=== PATIENT | female | born 1975 | race Caucasian/White ===

== ENCOUNTER 2017-05-19 10:04 | Emergency (ER) | payer MEDICAID ==
[~2017-05-19] VITALS: Ht 160 cm; Wt 45.4 kg
[~2017-05-19 10:04] MED LIST: ALBUTEROL2 PUFFS/17 IN; AMOXIL500 MG PO; BACTRIM DS 8001 TA1 PO; BENADRYL25 M1 PO; CIPRO 500MG TA500 MG PO; DIFLUCAN150 MG PO; FLAGYL500 M1 PO; KEFLEX 500MG.500 MG PO; MEDROL 4MG. DOSE4 MG PO; NAPROXEN SODIU500 MG PO; NOMEDS *; NORCO 325 MG-51 TAB PO; PREDNISONE 20MG20 MG PO; PROVERA 10MG TA10 MG PO; SEPTRA DS 800 M1 TAB PO; TESSALON PERLE100 MG PO; TESSALON PERLE200 MG PO; TUSSIONEX PENN480 ML PO; ZITHROMAX Z PA250 MG PO; ZITHROMAX500 MG PO
[2017-05-19] MEDS ORDERED: BIAXIN 500MG T500 MG PO (10:23)
[2017-05-19] MEDS ORDERED: PROVENTIL0.09 MG/A1 IH (10:23)
[2017-05-19] MEDS ORDERED: MEDROL 4MG. DOSE4 MG PO (10:23)
[2017-05-19] MEDS ORDERED: TESSALON PERLE100 M1 PO (10:23)
--- NOTE | 2017-05-19 10:24 | [facility] Report ---
History of Present Issue Date/Time Seen by Provider 05/19/17 1016 Visit Reason Pt arrived:Walked Presenting Problem:PT STATES BODY ACHES, FEVER, CHEST CONGESTION AND PRODUCTIVE COUGH X1 WEEK Location if Accident: Onset of symptoms date/time:/ or onset unknown for:MEDICAL HX UNKNOWN Have you (or family members/close friends) recently traveled outside the [place]? N If Yes, where/when: Have you had exposure to infectious disease within the past month? TB? Other? Specify: Source patient, RN notes reviewed Exam Limitations no limitations Comment Cough, congestion, body aches X 1 week. Has had fever and chills. She is weak and short of breath. Denies ear pain. Does have sore throat. Cough is productive of yellow sputum. No hemoptysis. No N/V/D. She does smoke. ALLERGIES Coded Allergies: codeine (Intermediate, I-HIVES 08/16/15) Home Medications Reported Medications No Known Home Medications History Medical History General CAD? No Angina: No MA: No Hypertension? No Hyperlipidemia? No CHF? No DVT? No PE? No COPD? No Asthma? No Anemia? No GERD? No Gastric ulcers? Yes GI Bleed? No Hernia? No Thyroid Problems? No Hypothyroidism? No CVA? No Seizures? No Diabetes? No Renal Insuffiency? No UTI? No Stones? No BPH? No GB Disease: No Nephritic Syndrome? No Asplenia? No Hepatitis? No Sickle Cell Disease? No Arthritis? No Migraines? No Cataracts? No Glaucoma? No MRSA? No HIV? No TB? No Anxiety? No Depression? No Cancer? Yes Site: CERVICAL More? 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 Social History Smoking Hx Smoker: Current Every Day Smoker Tobacco: Yes Type Cigarettes Packs/day < 1 Pack Alcohol Alcohol: No Review of Systems All Other Systems Reviewed and Negative Constitutional chills, fever, malaise, weakness Respiratory cough, wheezing Physical Exam Vital Signs Vital Signs Date Time Temp Pulse Resp B/P Pulse O2 O2 Flow FiO2 Ox Delivery Rate 05/19 1013 98.2 74 20 141/98 97 General Appearance normal appearance, no apparent distress Ear, Nose, Throat hearing grossly normal, normal ENT inspection Respiratory Status No: respiratory distress, trachea midline, chest symmetrical. Lung Sounds bilateral: rhonchi, wheezing. Cardiovascular normal exam, regular rate/rhythm, no peripheral edema, no gallop, no JVD, no murmur, no rub Extremities non-tender, normal range of motion, normal inspection, normal capillary refill Neurologic alert, normal exam, oriented x 3 Mental status normal mood/affect Medical Decision Making LABS/Meds/Orders Pt receiving controlled substance in ED? No Departure Departure Disposition DC Home or Self Care(routine) Clinical Impression Primary Impression: Bronchitis Condition STABLE Referrals Tomy ANDERSON,Nimesh Womack (Family) Patient Instructions DI for Acute Bronchitis Discharge Counseling Counseled pt/family regarding diagnosis, test results, medications/RX, home care, follow up needs Prescriptions Current Visit Scripts Clarithromycin (Biaxin) 500 MG PO BID #20 TAB Methylprednisolone (Medrol Dose Agustin) 4 MG PO UD #1 AGUSTIN TAKE DIRECTED ON PACKAGING ALBUTEROL (Proventil Hfa Inhaler) 1-2 PUFF IH Q4-6H PRN #1 CAN Benzonatate (Tessalon Perle) 100 MG PO TIDP PRN cough #30 SGL at 1024
[2017-05-19 10:27] VITALS: BP 141/98
== END 2017-05-19 10:28 | disposition home or self-care (01) ==
LOC: UTC 10:04
DX: J20.9 Acute bronchitis, unspecified (principal); F17.210 Nicotine dependence, cigarettes, uncomplicated